=== PATIENT | male | born 1980 | race Hispanic/Latino ===

== ENCOUNTER 2024-03-04 19:05 | Emergency (ER) | payer SELFPAY ==
[2024-03-04] VITALS (13 sets, daily range): BP systolic 100–157; BP diastolic 65–98; PULSE 67–82; RESP 12–20; TEMP 35.8–36.8; O2SAT 97–100
--- NOTE | ~2024-03-04 | CT_ITS ---
EXAMINATION: CT brain wo con DATE: 03/04/2024 22:26 INDICATION: Headache. Dizziness. TECHNIQUE: Computed tomography (CT) of the head was performed without intravenous contrast. The mA wa s adjusted according to patient size. Iterative reconstruction technique was employed. The dose-lengt h product was 605.33 mGy-cm. COMPARISON: None FINDINGS: There is no intracranial hemorrhage, acute infarction, or abnormal intracranial mass lesion . The ventricles are normal in size. The orbits are normal. There is mucosal thickening in the parana maryellen sinuses. The mastoid air cells are normal. IMPRESSION: 1. Normal brain. Reviewed, dictated and finalized at location A. IMPRESSION: 1. Normal brain.
--- NOTE | 2024-03-04 19:20 | ECG_ITS ---
Test Date: 2024-03-04 19:26:18 Measurements Intervals [place] Rate: 66 P: 17 MN: 180 QRS: 19 QRSD: 101 T: 4 QT: 425 QTc: 448 Interpretive Statements SINUS RHYTHM NORMAL ELECTROCARDIOGRAM No previous ECG available for comparison Electronically Signed On 03-05-2024 13:15:31 CDT by Joey Rivers M.D.
[2024-03-04 19:40] LABS: Hematocrit 44.5 % (42.0-52.0); Hemoglobin 15.4 g/dL (14.0-18.0); Mean Corpuscular HGB Conc 34.6 g/dl (32-36); Mean Corpuscular Hemoglobin 30.7 pg (26-34); Mean Corpuscular Volume 88.8 fl (80-100); Mean Platelet Volume 11.5 fl (7.4-10.4); Platelet Count Result 279 k/mm3 (150-375); Red Blood Count 5.01 M/mm3 (4.6-6.20); Red Cell Distribution Width 14.2 % (11.5-14.5); White Blood Count 9.6 K/mm3 (4.5-10.0)
[2024-03-04 19:48] LABS: Alanine Aminotransferase 88 U/L (6-50); Albumin Level 4.1 g/dL (3.5-5.1); Alkaline Phosphatase 90 U/L (38-126); Anion Gap 12 mmol/L (4-12); Aspartate Amino Transferase 80 U/L (17-59); Bilirubin,Total 0.4 mg/dL (0.2-1.3); Blood Urea Nitrogen 13 mg/dL (9-20); Calcium 8.6 mg/dL (8.4-10.2); Carbon Dioxide 21 mmol/L (22-30); Chloride 104 mmol/L (98-107); Estimated CRCL calculation 95 ml/min; Estimated Glomerular Filt Rate > 60; Glucose 133 mg/dL (65-110); Potassium 3.1 mmol/L (3.4-5.0); Sodium 137 mmol/L (137-145)
[2024-03-04 19:51] LABS: INR 0.9; Prothrombin Time 13.1 Seconds (11.1-14.7)
[2024-03-04 19:52] LABS: Partial Thromboplastin Time 23.1 Seconds (22.3-36.8)
[2024-03-04 19:58] LABS: Amphetamine Screen Urine Negative (Negative); Barbiturate Screen Urine Negative (Negative); Benzodiazepines Screen Urine Negative (Negative); Cannabinoid Screen Urine Negative (Negative); Cocaine Screen Urine Negative (Negative); Methadone Screen Urine Negative (Negative); Opiate Screen Urine Negative (Negative); Phencyclidine Screen Urine Negative (Negative)
[2024-03-04 20:13] LABS: Band Neutrophils Percent 2 % (0-6); Eosinophils Absolute Manual 0.28 K/mm3 (0.02-0.50); Eosinophils Percent Manual 3 % (0-4); Lymphocytes Absolute Manual 6.14 K/mm3 (1.1-4.5); Monocytes Absolute Manual 0.19 K/mm3 (0.1-0.90); Monocytes Percent Manual 2 % (3-9); Neutrophils Absolute Manual 2.97 K/mm3 (1.3-6.7); Neutrophils Percent Manual 29 % (46-73); Total Cells Counted 100
[2024-03-04] MEDS: MECLIZINE HCL 25 MG TABLET PO (20:13)
[2024-03-04 20:15] LABS: Atypical Lymphocytes Present; Platelet Estimate Adequate (Adequate); Schistocytes None Seen
--- NOTE | 2024-03-04 20:24 | ED.GENADULT ---
HPI - General Adult General Chief complaint: Altered Mental Status <Ziggy Sarkar MD - Last Filed: 03/07/24 07:03> Stated complaint: vera cp diaphoretic <Ziggy Sarkar MD - Last Filed: 03/07/24 07:03> Time Seen by Provider: 03/04/24 19:39 <Ziggy Sarkar MD - Last Filed: 03/07/24 07:03> History of Present Illness HPI narrative: Patient is a 41-year-old male who presents ER with near syncope. Patient was sitting in his bed and was having food delivered thumb. Reports he had been feeling hot throughout the day. He had been having intermittent episodes of dizziness. Reports he has been having pressure related to his dizziness and developed headache and sweats the became very shaky. He has had no fevers or chills or sweats. No diarrhea. Denies drug or alcohol abuse. Cannot describe aggravating or alleviating factors. Eating and drinking without issue. <Ziggy Sarkar MD - Last Filed: 03/07/24 07:03> Related Data Allergies/adverse reactions: Allergies Allergy/AdvReac Type Severity Reaction Status Date / Time No Known Allergies Allergy Verified 03/04/24 19:21 <Ziggy Sarkar MD - Last Filed: 03/07/24 07:03> Review of Systems Review of Systems: All systems reviewed & are unremarkable except as noted in HPI and below <Ziggy Sarkar MD - Last Filed: 03/07/24 07:03> Constitutional: Constitutional: Reports chills, Reports fatigue and Denies fever(s) <Ziggy Sarkar MD - Last Filed: 03/07/24 07:03> ENT: Reports dizziness, Denies nasal congestion and Denies sore throat <Ziggy Sarkar MD - Last Filed: 03/07/24 07:03> Cardiovascular: Cardiovascular: Reports no additional cardiovascular complaints <Ziggy Sarkar MD - Last Filed: 03/07/24 07:03> Respiratory: Respiratory: Reports no additional respiratory complaints <Ziggy Sarkar MD - Last Filed: 03/07/24 07:03> Neurologic: Reports headache(s), Denies focal weakness and Denies numbness <Ziggy Sarkar MD - Last Filed: 03/07/24 07:03> [facility] Past Medical History Medical History: Medical History (Updated 03/06/24 @ 00:00 by Lukas [email or web address]) Healthy adult male <Ziggy Sarkar MD - Last Filed: 03/07/24 07:03> Surgical History Surgical History: Surgical History (Updated 03/04/24 @ 21:50 by Ziggy Sarkar MD) No pertinent past surgical history <Ziggy Sarkar MD - Last Filed: 03/07/24 07:03> Exam Narrative: GENERAL: Well-appearing, well-nourished, and in no acute distress. HEAD: Normocephalic, atraumatic. EYES: PERRL and EOMI. ENT: Mucous membranes moist. TMs normal bilaterally. CHEST: Clear to auscultation. No respiratory distress. HEART: Regular rate and rhythm. Normal peripheral pulses. ABDOMEN: Soft, nontender, nondistended. EXTREMITIES: Normal range of motion. No edema. SKIN: Warm, dry, no rash. NEURO: Alert and oriented x3. Gets dizzy with standing up in feels spinning. A sharp touch deficit in lower extremities. PSYCH: Normal mood and affect. <Ziggy Sarkar MD - Last Filed: 03/07/24 07:03> Course Course Emergency Course: Patient felt improved after receiving meclizine and p.o. potassium. However when he stood up he had recurrent spinning dizziness. Will give additional fluids plus Valium. Additionally we will scan his head. <Ziggy Sarkar MD - Last Filed: 03/07/24 07:03> Vital Signs Vital signs: Vital Signs Temperature 97.5 F L 03/04/24 19:06 Pulse Rate 76 03/04/24 19:06 Respiratory Rate 12 03/04/24 19:06 Blood Pressure 109/65 03/04/24 19:06 Pulse Oximetry 99 03/04/24 19:06 Oxygen Delivery Non-Rebreather Mask 03/04/24 19:06 Oxygen Flow Rate 15 03/04/24 19:06 Temperature 98.3 F 03/04/24 23:31 Pulse Rate 76 03/04/24 23:31 Respiratory Rate 14 03/04/24 23:31 Blood Pressure 100/79 03/04/24 23:31 Pulse Oximetry 100 03/04/24 23:31 Oxygen Delivery Room Air 03/04/24 19:4
[2024-03-04] MEDS: POTASSIUM CHLORIDE 20 MEQ ER TABLET PO (20:29)
[2024-03-04 20:41] LABS: Influenza A QL RT-PCR Negative (Negative); Influenza B QL RT-PCR Negative (Negative); RSV RNA, RT-PCR Negative (Negative); SARS-CoV-2 RNA PCR Negative (Negative)
[2024-03-04 21:58] LABS: Add Urine Microscopic? YES; Appearance Urine Clear (Clear); Bacteria Urine None Seen /hpf; Bilirubin Urine Negative (Negative); Blood Urine Negative (Negative); Color Urine Yellow (Yellow); Glucose Urine UA Negative (Negative); Hyaline Casts Urine Present /lpf; Ketones Urine Trace mg/dL (Negative); Leukocyte Esterase Ur Negative LEU/UL (Negative); Nitrate Urine Negative (Negative); Protein Urine 2+ mg/dL (Negative); RBC Urine 0-2 /hpf (0-2); Specific Grav Ur 1.021 (1.001-1.035); Squamous Epithelial Cell Urine None Seen /hpf (Few); WBC Urine 0-5 /hpf (0-3); pH Urine 5.5 (5.0-9.0)
[2024-03-04] MEDS: SODIUM CHLORIDE 0.9% IV 1,000 ML 999 ML IV CONT (22:05)
[2024-03-04] MEDS: diazePAM INJ (*CRX) 10 MG/2 ML SYRINGE 5 MG IV PUSH (22:05)
== END 2024-03-05 00:23 | disposition home or self-care (01) ==
PROVIDERS: Emergency Provider Emergency Medicine
DX: R42 Dizziness and giddiness (principal); E87.6 Hypokalemia; Z20.822 Contact with and (suspected) exposure to COVID-19
CPT/HCPCS: 36415; 70450; 80053; 80307; 81001; 85025; 85610; 85730; 87637; 93005; 96361; 96374; 99284; A9270; J3360; J7030